=== PATIENT | female | born 1950 | race Caucasian/White ===

== ENCOUNTER 2024-10-05 02:46 | Outpatient (CLI) | payer MEDICARE, SELFPAY ==
--- NOTE | 2024-10-05 12:05 | DI.US_ITS ---
Exam(s) US PELVIS TRANSVAGINAL EXAM: US PELVIS TRANSVAGINAL CLINICAL HISTORY: Endometrial stripe,POSTMENOPAUSAL BLEEDING,VAGINAL PROLAPSE,N95.0 TECHNIQUE: Transabdominal and transvaginal imaging was performed using standard protocol. COMPARISON: No exams were available for comparison FINDINGS: The bladder is unremarkable. UTERUS: Anteverted. 6.1 x 2.4 x 3.7 cm Endometrium: Abnormally thickened, measuring 7 mm. Heterogeneous with multiple cystic spaces. The f indings could represent hyperplasia or polyps. Malignancy not excluded. Myometrium: Unremarkable. Cervix: Unremarkable. OVARIES: Right: Cyst or mass: None. Left: Cyst or mass: None. DOPPLER: Color: Symmetric and uniform flow to both ovaries. No hyperemia. CUL-DE-SAC: Free fluid: None. IMPRESSION: 1. Abnormally thickened heterogeneous endometrium. 2. Unremarkable bilateral ovaries. DATA REPOSITORY:
== END 2024-10-05 03:06 ==
LOC: DI 02:47
PROVIDERS: PCP Internal Medicine; Visit Provider Obstetrics & Gynecology
DX: N95.0 Postmenopausal bleeding (principal); R93.89 Abnormal findings on diagnostic imaging of other specified body structures
CPT/HCPCS: 76830; 76856

== ENCOUNTER 2024-10-05 13:29 | Outpatient (REF) | payer MEDICARE, SELFPAY ==
--- NOTE | 2024-10-05 13:15 | ENDOMET_PTH ---
PATIENT: Charissa Slaughter LOC: [facility] U#:[id number] AGE/SX: 73/F ROOM: RE10/05/[address]: Maricel Hill DO : 1950 BED: DIS: 10/05/2024 SPEC #: [id number] RECD: 10/05/24 14:15 STATUS: SOUT REQ #: [id number] GISELL: 10/05/24 13:[address]: Maricel Hill DEPT: Surgical Specimen RECD BY: Charissa Iyer ENTERED: 10/05/24 14:16 SP TYPE: Endomet OTHR DR: Vidhya Burgess Tissues: 1 - ENDOMETRIUM BX/CURRETTE Procedures: GROSS AND MICRO LEVEL 4 Comments: [id number]
== END 2024-10-05 13:30 | disposition home or self-care (01) ==
LOC: LBN 13:29
PROVIDERS: PCP Internal Medicine; Visit Provider Obstetrics & Gynecology
DX: N85.01 Benign endometrial hyperplasia (principal); N95.0 Postmenopausal bleeding
CPT/HCPCS: 88305